=== PATIENT | male | born 1995 | race Caucasian/White ===

== ENCOUNTER → 2021-12-28 | Outpatient (REF) | LOC: M RAD 08:44 | PROVIDERS: ATTEND Physician Assistant Medical | DX: M54.2 Cervicalgia (principal); M25.512 Pain in left shoulder; M25.511 Pain in right shoulder; M25.561 Pain in right knee; M25.562 Pain in left knee; M25.572 Pain in left ankle and joints of left foot; M25.571 Pain in right ankle and joints of right foot ==